=== PATIENT | female | born 1950 ===

== ENCOUNTER 2021-11-19 19:59 | Emergency (ER) | payer OTHER ==
[~2021-11-19] VITALS: Ht 165.1 cm; Wt 62.6 kg
--- NOTE | 2021-11-19 20:05 | NUR ---
PT BIB [facility] FROM HOME C/O HEAD AND GENERALIZED WEAKNESS. PT HAS HX OF DEMENTIA AND ALZHEIMERS. NO SOB OR LABORED BREATHING, AFEBRILE. DENIES CP/PRESSURE. NO GI/GI DISTRESS. NO N/V/D. HEBREW SPEAKING.
--- NOTE | 2021-11-19 20:08 | NUR ---
DR. GASPAR AT BEDSIDE, MSE IN PROGRESS.
[2021-11-19] MEDS ORDERED: MORPHINE SULFATE 2 MG/1 ML DISP.SYRIN IV ONE (20:30)
[2021-11-19 20:39] LABS: HEMATOCRIT 39.7 % (31.2-41.9); MEAN CORPUSCULAR HEMOGLOBIN 28.4 uug (24.7-32.8); MEAN CORPUSCULAR VOLUME 85.9 fL (75.5-95.3); PLATELET COUNT (AUTO) 158 K/uL (179-408)
--- NOTE | 2021-11-19 20:42 | NUR ---
XRAY AT BEDSIDE.
[2021-11-19] MEDS ORDERED: MORPHINE SULFATE 2 MG/1 ML DISP.SYRIN ONE (20:44)
--- NOTE | 2021-11-19 20:47 | NUR ---
PT BEING TAKEN DOWN FOR CT.
[2021-11-19 20:55] LABS: ALANINE AMINOTRANSFERASE 113 U/L (14-59); ALKALINE PHOSPHATASE 167 U/L (50-136); ASPARTATE AMINOTRANSFERASE 160 U/L (15-37); BILIRUBIN,DIRECT 0.2 mg/dL (0.0-0.2); BILIRUBIN,TOTAL 0.6 mg/dL (0.2-1.0); CARBON DIOXIDE 24 mmol/L (21-32); CHLORIDE 94 mmol/L (98-107); CREATININE 0.7 mg/dL (0.6-1.3); POTASSIUM 2.9 mmol/L (3.5-5.1); TOTAL PROTEIN, SERUM 8.1 g/dL (6.4-8.2); UREA NITROGEN, BLOOD 9 mg/dL (7-18)
--- NOTE | 2021-11-19 21:04 | NUR ---
PT RETURNED FROM CT, STABLE CONDITION.
[2021-11-19 21:07] LABS: GLUCOSE 440 mg/dL (74-106)
[2021-11-19 21:10] LABS: ETHANOL < 3 MG/DL (0-0)
[2021-11-19] MEDS ORDERED: IV NORMAL SALINE 500 ML IV ONE ×2 (21:15→21:30)
[2021-11-19 21:30] LABS: THYROID STIMULATING HORMONE 14.686 mIU/mL (0.358-3.740)
[2021-11-19] MEDS ORDERED: MAGNESIUM SULFATE/D5W 200 ML ONE (21:33)
[2021-11-19] MEDS ORDERED: POTASSIUM CHLORIDE 200 ML ONE (21:33)
[2021-11-19] MEDS: POTASSIUM CHLORIDE 50 ML IV SCH ×3 (21:38→22:10)
[2021-11-19] MEDS: MAGNESIUM SULFATE/D5W 100 ML IV SCH (22:56)
[2021-11-19] MEDS ORDERED: IOHEXOL 350 100 ML INFUS..BTL ONE (23:31)
[2021-11-19] MEDS ORDERED: SWABABLE VALVE TRANSFER SET EA MC ONE (23:31)
[2021-11-19] MEDS ORDERED: IV NORMAL SALINE 250 ML IV ONE (23:31)
[2021-11-19 23:44] LABS: *BILIRUBIN,URIN NEGATIVE (NEGATIVE); *BLOOD, URINE 1+ (NEGATIVE); *CLARITY,URINE CLOUDY (CLEAR); *COLOR,URINE YELLOW (YELLOW); *KETONES,URINE 1+ (NEGATIVE); *UROBILINOGEN,URINE 0.2 E.U./dl (NORMAL); LEUKOCYTE ESTERASE ,URINE NEGATIVE (NEGATIVE); NITRITE, URINE POSITIVE (NEGATIVE); UGLUCOSE 2+ (NEGATIVE)
[2021-11-19 23:57] LABS: BACTERIA,URINE MODERATE /HPF (NONE SEEN); RBC,URINE 20-50 /HPF (0-3); SQUAMOUS EPITHELIAL CELL,UR FEW /HPF (NONE SEEN); WBC,URINE 0-3 /HPF (0-3)
[2021-11-20 00:18] LABS: *AMPHETAMINE, URINE NEGATIVE (NEGATIVE); *CANNABINOID, URINE NEGATIVE (NEGATIVE); *COCCAINE, URINE NEGATIVE (NEGATIVE); *OPIATE, URINE POSITIVE (NEGATIVE); *PHENCYCLIDINE SCREEN,URINE NEGATIVE (NEGATIVE)
[2021-11-20] MEDS ORDERED: CEFTRIAXONE 2 G in IV DEXTROSE 5% 100 ML IV ONE (00:45)
[2021-11-20] MEDS ORDERED: ACYCLOVIR IV 1,000 MG in IV DEXTROSE 5% 250 ML IV ONE (00:45)
[2021-11-20] MEDS ORDERED: VANCOMYCIN 1G/D5W 200 ML PIGGYBACK IV ONE (00:45)
[2021-11-20] MEDS ORDERED: ACYCLOVIR 500 MG VIAL IV ONE (00:53)
[2021-11-20] MEDS ORDERED: VANCOMYCIN IV 200 ML ONE (00:54)
[2021-11-20] MEDS ORDERED: CEFTRIAXONE 1 G VIAL ONE ×2 (00:54→00:58)
[2021-11-20] MEDS ORDERED: CEFTRIAXONE /D5W 50ML IVPB **ER PYXIS IV ONE (00:54)
--- NOTE | 2021-11-20 01:15 | NUR ---
Patient is resting comfortably in bed with eyes closed. VSS.
[2021-11-20] MEDS ORDERED: KETAMINE HCL 500 MG/10 ML INJ IV ONE (02:15)
[2021-11-20] MEDS ORDERED: KETAMINE HCL 500 MG/10 ML INJ ONE (02:32)
[2021-11-20] MEDS ORDERED: LORAZEPAM 2 MG/1 ML VIAL IV ONE (03:00)
[2021-11-20] MEDS ORDERED: LORAZEPAM 2 MG/1 ML VIAL ONE (03:03)
[2021-11-20] MEDS ORDERED: INSULIN REGULAR, HUMAN 300 UNIT/3 ML VIAL IV ONE (03:45)
[2021-11-20] MEDS ORDERED: INSULIN REGULAR, HUMAN 300 UNIT/3 ML VIAL ONE (03:50)
[2021-11-20 04:02] LABS: ABG BASE EXCESS -3.2 mmol/L; ABG HCO3 20.4 mmol/L; ABG PCO2 31.9 mmHg (35.0-45.0); ABG PH 7.423 (7.350-7.450); ABG PO2 90.8 mmHg (75.0-100.0); ABG SITE LEFT RADIAL; ABG TOTAL HEMOGLOBIN 12.4 G/dL (12.0-16.0); COHb 0.5 % (0.5-1.5); MetHb 0.2 % (0.0-1.5); O2Hb 96.5 % (94.0-97.0); VENT MODE Room Air
--- NOTE | 2021-11-20 04:18 | NUR ---
DR. GASPAR ON THE PHONE WITH [place]
--- NOTE | 2021-11-20 05:29 | NUR ---
[facility] CALLED BACK: ACCEPTED TO: AMISHA ARGUETA MD: DR. RUBIN ROOM: ED REPORT #: [phone]
--- NOTE | 2021-11-20 06:09 | NUR ---
Gave report to [facility] nurse [place].
--- NOTE | 2021-11-20 09:03 | NUR ---
PT WAS TRANSFERED TO [facility]. REPORT WAS GIVEN TO AMBULANCE RN, RPORT WAS GIVEN TO INSIDE OUTSIDE SALES REPRESENTATIVE AT [facility].
== END 2021-11-20 09:07 | disposition admitted as inpatient to this hospital (09) ==
LOC: ER 20:09
DX: R41.82 Altered mental status, unspecified (principal); R51.9 Headache, unspecified; E11.9 Type 2 diabetes mellitus without complications; Z79.899 Other long term (current) drug therapy; Z20.822 Contact with and (suspected) exposure to COVID-19
CPT/HCPCS: 36415; 36600; 70450; 70496; 70498; 71045; 80048; 80076; 80307; 80320; 81001; 83605 ×2; 84443; 84484; 85025; 85651; 86140; 87040 ×2; 87086; 87400; 87426; 93005; 96361; 96365; 96367; 96375 ×2; 99285; J0133; J0696 ×3; J1815; J2060; J2270; J3370; J3475; J3480; J3490; J7060 ×2; Q9967; A4663; G0480; J7030; J7040; J7050